=== PATIENT | male | born 1955 | race Caucasian/White ===

== ENCOUNTER 2025-06-17 08:11 | Inpatient (IN) | payer OTHER, MEDICAID ==
[~2025-06-17] VITALS: Ht 170.2 cm; Wt 79.6 kg
[~2025-06-17 08:11] MED LIST: ASPI1TAB20 PO; OMEG-20 PO
[2025-06-17] MEDS ORDERED: MIDAZOLAM HCL 2MG/2ML 2ml VIAL (1mg/ml) ONE (08:37)
[2025-06-17] MEDS ORDERED: fentaNYL CITRATE 100 MCG/2 ML VL ONE (08:37)
[2025-06-17] MEDS ORDERED: KETAMINE 50mg/ML 1ml syringe ONE (08:37)
[2025-06-17] MEDS ORDERED: PROPOFOL 10 MG/ML 20 ML IV ONE (08:38)
[2025-06-17] MEDS ORDERED: GLYCOPYRROLATE 0.2 MG/ML 1ML VIAL ONE (08:38)
[2025-06-17] MEDS ORDERED: BUPIVACAINE/DEXTROSE MPF 0.75% 2 ML AMP IT ONE (08:38)
[2025-06-17] MEDS ORDERED: ONDANSETRON HCL 4 MG/2 ML VIAL ONE (08:38)
[2025-06-17] MEDS ORDERED: VANCOMYCIN HCL 1000 MG VL ONE (09:17)
[2025-06-17] MEDS: ceFAZolin 2 GM/D5W50ml 50 ML IV ONE (09:43)
[2025-06-17] MEDS: CEFEPIME 1GM/50ML 50 ML IV ONE (09:53)
[2025-06-17] MEDS: TRANEXAMIC ACID 20 ML ONE (10:03)
[2025-06-17] MEDS: KETOROLAC TROMETH 30 MG/ML 1ML VIAL ONE (10:20)
[2025-06-17] MEDS: MORPHINE SULF PF 5 MG/10 ML VIAL ONE (10:20)
[2025-06-17] MEDS: BUPIVACAINE 0.25% INJ 50ML VIAL ONE (10:20)
[2025-06-17] MEDS ORDERED: ROPIVACAINE 0.5% (5MG/ML) 20ML AMPULE IJ ONE (10:23)
--- NOTE | 2025-06-17 11:43 | DVH ---
CLINICAL INDICATION: SURGERY TECHNIQUE: 1 radiographic views of the pelvis were obtained. Comparison: CR HIP RIGHT 2-3 VIEW on DOS: 04/23/24 FINDINGS/IMPRESSION: Postsurgical changes from right hip arthroplasty.
--- NOTE | 2025-06-17 11:49 | DVHOP2 ---
Operative Report - 2 Report Details Date: 06/17/25 Preop Diagnosis: Right hip degenerative arthritis Postop Diagnosis: Right hip degenerative arthritis Surgeon: Denny Holland MD Rn Transitional Care: Bradley PARKER Anesthesiologist: Cholo Bee Anesthesia: Regional Drains: Imelda closed wound suction Implant: Lucia Z one stem size five, size 36 head with 0 neck length ceramic, 50 cup G7, one acetabular screw, flat acetabular liner Consent: The patient was informed of the risks and benefits of the procedure. These incl ude but are not limited to complications of anesthesia, postoperative infection, incomplete relief of symptoms, recurrence of symptoms, damage to blood vessels, nerves and tendons, deep venous thrombosis, pulmonary embolism and possible need for repeat surgery in the future. Complications: None Estimated Blood Loss: 200 cc Fluids: See anesthesia record Findings: Femoral head and acetabulum with denuded cartilage and eburnated bone, osteophytes Indications for Surgery: Right hip degenerative arthritis with severe pain and functional impairment despite nonoperative management Name of Procedure Performed Right total hip arthroplasty Procedure Details Procedure Details: The patient was brought to the operating room and given spinal anesthetic with adequate analgesia obtained. The patient was positioned lateral decubitus with the operative side up, stabilized with hip positioners. Axillary roll applied and lower extremities well-padded. Preop patient received IV Ancef, cefepime and IV tranexamic acid. Surgical timeout was performed verifying patient, laterality and procedure. The hip and lower extremity were prepped and draped in sterile fashion. Incision was made over the greater trochanter. Subcutaneous dissection and hemostasis were performed with Bovie and aqua mantis. I identified the fascia which was incised with Bovie and Charnley retractor inserted. I identified the gluteus medius that was split at the junction of its anterior and middle thirds with Bovie then incised off the anterior greater trochanter. I incised the anterior gluteus minimus which was elevated off the capsule. I elevated the reflected head of the rectus. I then performed anterior capsulectomy with Bovie. I extended capsular incision posterior medially and superior laterally. The head was dislocated. Femoral neck cut was made with saw and head removed. Head diameter was calipered on the back table. I adjusted retractors to expose the acetabulum. I circumferentially removed labral tissue with Bovie. I removed foveal tissue with Bovie, curette and rongeur. I then began reaming sequentially paying atte ntion to inclination and version as I went. I trialed which was fairly stable so acetabular implant was brought into the field and tapped into the acetabulum with fairly good fixation achieved. I removed one of the caps in the acetabulum. I then drilled, measured with depth gauge and inserted acetabular screw for additional fixation. I then brought up the flat liner which was spun to make sure there was no soft tissue entrapment then tapped in and stability verified. I then brought my attention to the proximal femur. The leg was placed in the sterile bag anteriorly. I cleaned up soft tissue at the greater trochanter shoulder with Bovie. I then used a rongeur to clip the lateral neck. I then used a box osteotome, canal finder and lateralizing rasp. I sequentially broached to size 6. I revised the femoral neck cut with calcar planer. I trialed with a [0] neck length and [36] head which was stable. Intraoperative AP pelvis x-ray was obtained to verify length, offset and implant size. The neck and overall length was long. So hip was dislocated, head and neck trials removed. I removed the broach. I then broached with a size five broach. I then again revised the neck with the calcar planer. Another x-ray was obtained which revealed better length and good fit with the stem. The hip was dislocated. Neck and head trial removed. Broach was removed. I tapped in the femoral implant with good fixation achieved. I cleaned and dried the Riley taper and tapped on the ceramic head. The hip was again reduced and tested for stability which was good. I irrigated with bacisurge. I placed 2 grams of vancomycin in the deep and superficial wound. I repaired the minimus and medius to the anterior greater trochanter with #[5] FiberWire in running fashion . I oversewed the repair with 0 Vicryl. I repaired the fascia with #1 Ethibond interrupted [id number]. Deep subcutaneous tissue was closed with 0 Vicryl. Superficial subcutaneous tissue was closed with 2-0 Vicryl. The skin was closed with margie. I then applied the Imelda closed wound suction. Patient tolerated the procedure well and was brought to the recovery room in stable condition. Condition Stable Disposition Still a Patient DENNY HOLLAND MD Jun 17, 2025 11:49
[2025-06-17] MEDS: KETOROLAC TROMETH 30 MG/ML 1ML VIAL IV SCH (12:00)
[2025-06-17] MEDS: ACETAMINOPHEN 325 MG TAB PO SCH (12:00)
[2025-06-17] MEDS ORDERED: ONDANSETRON HCL 4 MG/2 ML VIAL IV PRN (12:00)
[2025-06-17 12:01] VITALS: O2SAT 93
--- NOTE | 2025-06-17 14:14 | DVH ---
CLINICAL INDICATION: postop TECHNIQUE: 1 radiographic views of the pelvis were obtained. Comparison: XY R HIP 1V XRAY on DOS: 06/17/25, CR HIP RIGHT 2-3 VIEW on DOS: 04/23/24 FINDINGS/IMPRESSION: Postsurgical changes from right hip arthroplasty.
[2025-06-17 14:23] VITALS: PULSE 54; RESP 17; O2SAT 97
[2025-06-17] MEDS: ceFAZolin 2 GM/D5W50ml 50 ML IV SCH (15:32)
[2025-06-17] MEDS: SODIUM CHLORIDE 0.9% 1,000 ML IV SCH (15:33)
[2025-06-17 17:08] VITALS: BP 129/82; PULSE 53; RESP 18; TEMP 97.7; O2SAT 96
[2025-06-17 20:00] VITALS: RESP 14
[2025-06-17 21:00] VITALS: BP 132/87; PULSE 68; RESP 18; TEMP 98.1; O2SAT 95
[2025-06-18] MEDS: PREGABALIN 25 MG CAP PO SCH (00:31)
[2025-06-18 01:00] VITALS: BP 105/80; PULSE 112; RESP 18; TEMP 98.9; O2SAT 95
[2025-06-18 05:00] VITALS: BP 116/77; PULSE 56; RESP 18; TEMP 97.9; O2SAT 95
[2025-06-18 06:25] LABS: Hematocrit 38.8 % (41.0-53.0); Hemoglobin 13.6 g/dL (13.5-17.5); Mean Corpuscular Hemoglobin 31.3 pg (28.0-32.0); Mean Corpuscular Volume 89.2 fL (80.0-100.0); Nucleated Red Blood Cells % 0.0 %
[2025-06-18 06:48] LABS: Anion Gap 10 (5-15); Carbon Dioxide 25 mmol/L (20-31); Chloride 104 mmol/L (98-107); Potassium 4.0 mmol/L (3.5-5.1); Sodium 139 mmol/L (136-145)
[2025-06-18 06:54] LABS: BUN/Creatinine Ratio 15.7 (10.0-20.0); Blood Urea Nitrogen 14 mg/dL (9-23)
[2025-06-18 06:56] LABS: Calcium 8.5 mg/dL (8.7-10.4); Glucose 116 mg/dL (74-106)
[2025-06-18 08:00] VITALS: RESP 18
[2025-06-18 08:37] VITALS: BP 115/87; PULSE 55; RESP 16; TEMP 98; O2SAT 97
[2025-06-18] MEDS: APIXABAN 2.5 MG TAB PO SCH (09:24)
[2025-06-18 13:00] VITALS: BP 125/77; PULSE 63; RESP 16; TEMP 97.9; O2SAT 97
[2025-06-18] MEDS ORDERED: MEPERIDINE HCL (25 MG/ML) 1ML VIAL IV ONE (13:01)
--- NOTE | 2025-06-18 15:13 | DVHPN2 ---
Progress Note - Dictate Date Seen: Jun 18, 2025 Medical Necessity Reason Pt with a Central, PICC or Fol: No Subjective Patient was lying comfortably in bed during my evaluation reports some postoperative hip pain that is being well managed with the help of pain medication. Patient reports that he was able to get up and walk with the help of physical therapy yesterday as well as today and was able to get down the bañuelos around the nurses station and back to his room with some postoperative hip pain that it was manageable. Patient was otherwise feeling well denying any other complaints or concerns during my evaluation and is ready to go home. vital signs Vital Sign Date Time Temp Pulse Resp B/P (MAP) Pulse Ox O2 Delivery O2 Flow Rate FiO2 06/18/25 13:00 97.9 63 16 125/77 (93) 97 97.9 06/18/25 08:00 Room Air* 0 21 Total Intake and Output 06/17/25 06/17/25 06/18/25 15:00 23:00 07:00 Intake Total 220 ml 800 ml Output Total 200 ml 1225 ml Balance 20 ml -425 ml medications Current Medications Medications Dose Ordered Sig/Sujit Route Start Time Stop Time Status Last Admin Dose Admin Pregabalin 50 mg BID PO 06/17/25 22:00 06/18/25 09:23 50 MG Apixaban 2.5 mg BID PO 06/18/25 10:00 07/23/25 09:59 06/18/25 09:24 2.5 MG Sodium Chloride 1,000 ml @ 125 mls/hr Q8H IV 06/17/25 11:30 06/18/25 11:29 125 MLS/HR Acetaminophen 650 mg Q6HP PO 06/17/25 12:00 06/18/25 11:27 650 MG Ketorolac Tromethamine 15 mg Q6HR IV 06/17/25 12:00 06/22/25 11:59 06/18/25 11:29 15 MG Ondansetron HCl 4 mg Q4HP PRN IV 06/17/25 12:00 Oxycodone HCl 5 mg Q4HP PRN PO 06/17/25 11:30 Oxycodone HCl 10 mg Q4HP PRN PO 06/17/25 11:30 objective A&O x4 in no acute distress Hip range of motion grossly limited with pain on movement Imelda dressing clean, dry, intact, and maintaining suction No distal edema or calf tenderness to palpation Neurovascularly intact with cap refill less than 2 seconds laboratory and microbiology Laboratory Tests 06/18/25 04:59 Test 06/18/25 04:59 Range/Units Serum Glucose 116 H 74-106 mg/dL Assessment/Plan Patient to be discharged home and advised to remain weight-bearing as tolerated with the assistance of a walker. I also advised the patient to follow up with our office in 10-14 days for his 1st postoperative evaluation and to maintain his dressings clean, dry, intact, and maintaining suction and to call our office if he has any further questions or concerns. Rx sent via our outpatient EMR system. Patient understood and agreed. Plan discussed with: Patient, Spouse JOE BROWNING Jun 18, 2025 15:13
--- NOTE | 2025-06-18 15:14 | DVHDS2 ---
Discharge Summary Date of Admission Jun 17, 2025 at 11:28 Date of Discharge: Jun 18, 2025 Labs/Diagnostic Data: Laboratory Results Test 06/18/25 04:59 White Blood Count 9.5 10^3/uL (4.4-10.8) Red Blood Count 4.35 10^6/uL (4.5-5.90) Hemoglobin 13.6 g/dL (13.5-17.5) Hematocrit 38.8 % (41.0-53.0) Mean Corpuscular Volume 89.2 fL (80.0-100.0) Mean Corpuscular Hemoglobin 31.3 pg (28.0-32.0) Mean Corpuscular Hemoglobin Concent 35.1 g/dL (32.0-36.0) Red Cell Distribution Width 13.4 % (11.8-14.3) Platelet Count 241 10^3/uL (140-450) Mean Platelet Volume 8.1 fL (6.9-10.8) Neutrophils (%) (Auto) 82.1 % (37.0-80.0) Lymphocytes (%) (Auto) 8.0 % (10.0-50.0) Monocytes (%) (Auto) 9.4 % (0.0-12.0) Eosinophils (%) (Auto) 0.2 % (0.0-7.0) Basophils (%) (Auto) 0.3 % (0.0-2.0) Neutrophils # (Auto) 7.8 10 ^3/uL (1.6-8.6) Lymphocytes # (Auto) 0.8 10 ^3/uL (0.4-5.4) Monocytes # (Auto) 0.9 10 ^3/uL (0-1.3) Eosinophils # (Auto) 0 10 ^3/uL (0-0.8) Basophils # (Auto) 0 10 ^3/uL (0-0.2) Nucleated Red Blood Cells 0.0 % Sodium Level 139 mmol/L (136-145) Potassium Level 4.0 mmol/L (3.5-5.1) Chloride Level 104 mmol/L (98-107) Carbon Dioxide Level 25 mmol/L (20-31) Anion Gap 10 (5-15) Blood Urea Nitrogen 14 mg/dL (9-23) Creatinine 0.89 mg/dL (0.700-1.30) Glomerular Filtration Rate Calc 93 mL/min (>90) BUN/Creatinine Ratio 15.7 (10.0-20.0) Serum Glucose 116 mg/dL (74-106) Calcium Level 8.5 mg/dL (8.7-10.4) Other Laboratory Tests 06/18/25 04:59 Brief Hx & Hospital Course: Patient was brought to the hospital yesterday to undergo a total hip arthroplasty. He tolerated the procedure well without complications and was kept overnight for postoperative observation. Patient reports that he was able to get up and walk with the help of physical therapy and his walker and was able to get down the bañuelos around the nurses station and back to his room yesterday as well as today. Patient was otherwise feeling well denying any other complaints or concerns during my evaluation and would like to go home. Condition at Discharge: Stable Final Diagnosis/Problems List Right hip degenerative arthritis Discharge Disposition: Home Discharge Instruct/Medications Diet: Regular Activity: See Comment Activity comment: I advised the patient to remain weight-bearing as tolerated with the assistance of a walker. Follow Up/Referral: I instructed the patient to follow up with our office in 10-14 days for his 1st postoperative evaluation Medications: Rx sent via our outpatient EMR system Miscellaneous Medications Aspirin (Aspir-81), 81 MG PO, (Reported) [place]-3 Fatty Acids (Fish Oil), Unknown Dose PO, (Reported) Discharge Statement: "Patient was advised to return to the ER or call 911 if any headaches, dizziness, shortness of breath, chest pain, abdominal pain, bleeding, fevers, or worsening of medical condition. Patient was counseled about treatment plan, medications, possible side effects, patientverbalized understanding. All questions were answered to the best of my ability. This discharge took greater then 30 minutes in planning, reviewing documentation, counseling the patient, and discussing with other team members." ASSESSMENT ASSESSMENT Assessment Right hip degenerative arthritis JOE BROWNING Jun 18, 2025 15:14
[2025-06-18 15:39] VITALS: TEMP 36.6
--- NOTE | 2025-06-18 16:07 | DVHPN2 ---
Subjective Patient is status post right total hip arthroplasty. Changes from previous H/P or p: No Changes Objective Vitals Vital Signs Date Time Temp Pulse Resp B/P (MAP) Pulse Ox O2 Delivery O2 Flow Rate FiO2 06/18/25 15:39 36.6 06/18/25 13:00 63 16 125/77 (93) 97 06/18/25 08:00 Room Air* 0 21 Intake/Output Intake and Output 06/18/25 07:00 Intake Total 1020 ml Output Total 1425 ml Balance -405 ml Intake Oral 800 ml IV Total 220 ml Output Urine Total 1425 ml # Voids 1 Medications Current Medications Medications Dose Ordered Sig/Sujit Route Start Time Stop Time Status Last Admin Dose Admin Pregabalin 50 mg BID PO 06/17/25 22:00 06/18/25 09:23 50 MG Apixaban 2.5 mg BID PO 06/18/25 10:00 07/23/25 09:59 06/18/25 09:24 2.5 MG Sodium Chloride 1,000 ml @ 125 mls/hr Q8H IV 06/17/25 11:30 06/18/25 11:29 125 MLS/HR Acetaminophen 650 mg Q6HP PO 06/17/25 12:00 06/18/25 11:27 650 MG Ketorolac Tromethamine 15 mg Q6HR IV 06/17/25 12:00 06/22/25 11:59 06/18/25 11:29 15 MG Ondansetron HCl 4 mg Q4HP PRN IV 06/17/25 12:00 Oxycodone HCl 5 mg Q4HP PRN PO 06/17/25 11:30 Oxycodone HCl 10 mg Q4HP PRN PO 06/17/25 11:30 Laboratory Results Laboratory Tests 06/18/25 04:59 Chemistry Test 06/18/25 04:59 Calcium Level 8.5 mg/dL (8.7-10.4) L Assessment/Plan Assessment/Plan 69-year-old male with a no significant past medical history presented to the hospital for elective surgery. 1. Right hip chronic pain -physical therapy evaluation and treatment, pain meds, DVT GI prophylaxis, discharge plan Plan discussed with: Patient Date of Service: Jun 17, 2025 Billing Provider: JAELYN TRUJILLO MD Common Visit Codes: NOT BILLABLE JAELYN TRUJILLO MD Jun 18, 2025 16:07
== END 2025-06-18 16:10 | disposition home or self-care (01) | DRG 470 ==
LOC: SUR 08:11 → OVERFLOW 11:28 → CENTRAL 14:28
PROVIDERS: ADMIT Orthopaedic Surgery; ATTEND Orthopaedic Surgery
PROC: 0SR904A Replacement of Right Hip Joint with Ceramic on Polyethylene Synthetic Substitute, Uncemented, Open Approach (ICD-10-PCS; principal; 2025-06-17 09:43)
DX: M16.11 Unilateral primary osteoarthritis, right hip (principal); G89.29 Other chronic pain; Z79.899 Other long term (current) drug therapy
CPT/HCPCS: 36415; 72170; 73501; 80048; 85025; 86850; 86900; 86901; 97162; G0378; J1885; J2250; J2405; J2704; J3490